=== PATIENT | female | born 1935 | race Caucasian/White ===

== ENCOUNTER 2020-08-25 10:11 | Emergency (ER) | payer MEDICARE, BC, SELFPAY ==
--- NOTE | ~2020-08-25 | US_ITS ---
EXAMINATION: US venous doppler [facility] DATE: 08/25/2020 10:56 INDICATION: Left lower limb swelling. TECHNIQUE: Grayscale ultrasound images without and with compression and Doppler ultrasound images of the bilateral lower extremity veins were obtained. COMPARISON: None. FINDINGS: The visualized portions of right common femoral vein, profunda (deep) femoral vein, femoral vein, pop liteal vein, peroneal veins, posterior tibial veins, and greater saphenous vein outflow are patent. The visualized portions of left common femoral vein, profunda femoral vein, femoral vein, popliteal v ein, peroneal veins, posterior tibial veins, and greater saphenous vein outflow are patent. IMPRESSION: 1. No deep venous thrombosis. Reviewed, dictated and finalized at location [facility] [employer]
[2020-08-25 10:15] VITALS: BP 131/59; PULSE 66; RESP 17; TEMP 36.5; O2SAT 96
[2020-08-25] MEDS: diphenhydrAMINE HCl CAP 25 MG CAPSULE PO (10:28)
[2020-08-25 11:13] VITALS: BP 176/63; PULSE 69; RESP 18; O2SAT 97
--- NOTE | 2020-08-25 11:13 | ED.GENADULT ---
HPI - General Adult General Chief complaint: Skin/Abscess/Foreign Body Stated complaint: rash on both arms and legs, swelling in legs Time Seen by Provider: 08/25/20 10:17 History of Present Illness HPI narrative: Patient is an 84-year-old female who presents to the ER with rash to her arms and left leg. Ongoing for 2 weeks. Had similar rash beginning 1 year ago. She did use triamcinolone cream with some improvement. Patient reports itching burning. No fevers or chills or sweats. Left lower extremity rash is associated with dry flaking skin. She also has no edema in lower extremity. No chest pain or shortness of breath. No previous DVT. Patient cannot identify any alleviating factors and has tried some triamcinolone without relief. Related Data Allergies Allergy/AdvReac Type Severity Reaction Status Date / Time TREE POLLEN AdvReac Unknown RUNNY NOSE Uncoded 08/25/20 10:19 Review of Systems Review of Systems: All systems reviewed & are unremarkable except as noted in HPI and below Constitutional: Constitutional: Denies chills, Denies fever(s) and Denies weakness ENT: Denies nasal congestion and Denies sore throat Cardiovascular: Cardiovascular: Denies chest pain, Denies rapid heart rate and Denies radiating jaw, neck or arm pain Respiratory: Respiratory: Denies cough, Denies dyspnea and Denies wheezing Musculoskeletal: Comments: Extremity edema Integumentary/Breasts: Skin/Breast: Reports pruritus, Reports erythema and Reports rash PMFSH Past Medical History Medical History (Updated 08/25/20 @ 13:38 by Juan Alberto Lopez MD) CHF (congestive heart failure) Essential hypertension Hx-TIA (transient ischemic attack) Hypertensive heart failure Memory deficits Osteoporosis, unspecified Surgical History Surgical History (Updated 08/25/20 @ 11:29 by Juan Alberto Lopez MD) H/O: hysterectomy Heart valve replaced Social History Social History Smoking status: Never smoker Second hand tobacco smoke exposure: No Alcohol intake: never Exam Narrative: Exam Narrative: GENERAL: Well-appearing, well-nourished, and in no acute distress. HEAD: Normocephalic, atraumatic. CHEST: Clear to auscultation. No respiratory distress. HEART: Regular rate and rhythm. Normal peripheral pulses. ABDOMEN: Soft, nontender, nondistendeds. EXTREMITIES: Normal range of motion. 2+ edema in the left lower extremity, trace in the right lower extremity, mild edema in the proximal forearms and elbows bilaterally.. SKIN: Warm, dry, no rash. Areas of edema have dry flaky skin that has mild warmth and erythema. Mild tenderness. NEURO: Alert and oriented x3. PSYCH: Normal mood and affect. Course Course Emergency Course: Redness responded well with Benadryl as the patient's itching and burning. No DVT. Discussed with patient's PCP. Will start on as needed Benadryl as well as daily Zyrtec to help with itching. Suspect dermatitis picture. Patient may also use her triamcinolone cream. To deal with the edema we will place patient on low-dose Lasix for the next 3 days. Discharge home. Vital Signs Vital signs: Vital Signs Temperature 97.7 F 08/25/20 10:15 Pulse Rate 66 08/25/20 10:15 Respiratory Rate 17 08/25/20 10:15 Blood Pressure 131/59 L 08/25/20 10:15 Pulse Oximetry 96 08/25/20 10:15 Temperature 97.7 F 08/25/20 10:15 Pulse Rate 69 08/25/20 11:13 Respiratory Rate 18 08/25/20 11:13 Blood Pressure 176/63 H 08/25/20 11:13 Pulse Oximetry 97 08/25/20 11:13 Medical Decision Making Vital Signs Vital Signs: Vital Signs Temperature 97.7 F 08/25/20 10:15 Pulse Rate 66 08/25/20 10:15 Respiratory Rate 17 08/25/20 10:15 Blood Pressure 131/59 L 08/25/20 10:15 Pulse Oximetry 96 08/25/20 10:15 Temperature 97.7 F 08/25/20 10:15 Pulse Rate 69 08/25/20 11:13 Respiratory Rate 18 08/25/20 11:13 Blood Pressure 176/63 H 08/25/20 11:13 Pulse Oximetry 97 08/25/20 11:13
[2020-08-25 11:17] LABS: Basophils Percent Auto 0.4 % (0.2-1.2); Eosinophils Absolute Auto 0.3 K/mm3 (0-0.3); Eosinophils Percent Auto 3.5 % (0-4.4); Hematocrit 33.1 % (37.0-47.0); Hemoglobin 10.3 g/dL (12.0-15.0); Immature Granulocyte Absolute 0.02 K/mm3 (0.00-0.031); Immature Granulocyte Percent A 0.3 % (0-0.5); Lymphocytes Absolute Auto 1.62 K/mm3 (0.9-3.2); Lymphocytes Percent Auto 20.9 % (18.3-44.2); Mean Corpuscular HGB Conc 31.1 g/dl (32-36); Mean Corpuscular Hemoglobin 29.5 pg (26-34); Mean Corpuscular Volume 94.8 fl (80-100); Mean Platelet Volume 10.8 fl (7.4-10.4); Monocytes Absolute Auto 0.5 K/mm3 (0.1-0.6); Monocytes Percent Auto 6.5 % (2.6-8.5); Neutrophils Absolute Auto 5.3 K/mm3 (1.3-6.7); Neutrophils Percent Auto 68.4 % (45.5-73.1); Platelet Count Result 221 k/mm3 (150-375); Red Blood Count 3.49 M/mm3 (4.2-5.4); White Blood Count 7.7 K/mm3 (4.5-10.0)
[2020-08-25 11:26] LABS: INR 1.1; Prothrombin Time 14.9 Seconds (11.1-14.7)
[2020-08-25 11:27] LABS: Partial Thromboplastin Time 30.9 SECONDS (22.3-36.8)
[2020-08-25 11:28] LABS: Anion Gap 3 mmol/L (8-16); Blood Urea Nitrogen 18 mg/dL (7-17); Carbon Dioxide 29 mmol/L (22-30); Chloride 105 mmol/L (98-107); Estimated CRCL calculation 37 ml/min; Estimated Glomerular Filt Rate > 60; Glucose 102 mg/dL (65-105); Potassium 5.5 mmol/L (3.4-5.0); Sodium 137 mmol/L (137-145)
[2020-08-25 14:09] VITALS: BP 170/82; PULSE 70; RESP 18; O2SAT 100
== END 2020-08-25 14:11 | disposition home or self-care (01) ==
PROVIDERS: Emergency Provider Emergency Medicine; PCP Family Medicine
DX: L30.9 Dermatitis, unspecified (principal); R60.9 Edema, unspecified; I11.0 Hypertensive heart disease with heart failure; I50.9 Heart failure, unspecified
CPT/HCPCS: 36415; 80048; 85025; 85610; 85730; 93970; 99284; A9270